=== PATIENT | female | born 1945 | race Two or more races ===

== ENCOUNTER 2023-02-05 05:58 | Day surgery (SDC) | payer OTHER ==
[~2023-02-05] VITALS: Ht 157.5 cm; Wt 72.6 kg
[~2023-02-05 05:58] MED LIST: COZAAR50 MG PO; RECTICARE30 GM TP; TOPROL XL25 M1 PO; TRAM1TAB98 PO; ZOLOFT50 MG PO
[2023-02-05] MEDS ORDERED: TRAM1TAB98 PO (08:39)
[2023-02-05] MEDS ORDERED: NEURONTIN300 MG PO (08:39)
[2023-02-05] MEDS ORDERED: DERMOPLAST PAIN78 GM TOP (08:40)
== END 2023-02-05 13:10 | disposition home or self-care (01) ==
LOC: CIR.AMB 05:58
PROVIDERS: ATTEND Surgery
DX: K62.0 Anal polyp (principal); K62.1 Rectal polyp; K62.2 Anal prolapse; K62.89 Other specified diseases of anus and rectum; Z88.6 Allergy status to analgesic agent; Z91.018 Allergy to other foods